=== PATIENT | female | born 2000 | race African-American/Black ===

== ENCOUNTER 2023-08-10 12:01 | Emergency (ER) | payer OTHER ==
[~2023-08-10] VITALS: Ht 160 cm; Wt 68.2 kg
[2023-08-10 12:17] VITALS: TEMP 98.4
[2023-08-10 12:47] LABS: BASOPHILS % (AUTO) 0.4 % (0.0-2.0); EOSINOPHILS % (AUTO) 0.4 % (1.0-6.0); HEMATOCRIT 42.9 % (36-46); HEMOGLOBIN 13.9 g/dL (12.0-16.0); LYMPHOCYTES # (AUTO) 2.8 K/uL (1.0-4.8); MEAN CORPUSCULAR HEMOGLOBIN 25.2 pg (26.0-34.0); MEAN CORPUSCULAR HGB CONC 32.4 G/dL (31.0-37.0); MEAN CORPUSCULAR VOLUME 78 fL (80-100); MONOCYTES # (AUTO) 0.6 K/uL (0.1-1.0); MONOCYTES % (AUTO) 7.1 % (2.0-9.0); NEUTROPHILS # (AUTO) 4.7 K/uL (1.8-7.7); NEUTROPHILS % (AUTO) 58.1 % (40.0-70.0); PLATELET COUNT (AUTO) 208 K/uL (150-450); RED BLOOD CELL COUNT(AUTO) 5.53 MIL/uL (4.00-5.20); RED CELL DISTRIBUTION WIDTH 14.3 % (11.5-14.5); WHITE BLOOD COUNT (AUTO) 8.1 K/uL (4.5-11.0)
[2023-08-10 13:16] LABS: ANION GAP 15 mmol/L (8-16); CALCIUM, TOTAL 9.9 mg/dL (8.8-10.5); CARBON DIOXIDE 23 mmol/L (22-29); CHLORIDE 101 mmol/L (98-107); CREATININE 0.74 mg/dL (0.60-1.30); GLOMERULAR FILTR. RATE CALC > 60 mL/min (>60); GLUCOSE,RANDOM 83 mg/dL (70-110); POTASSIUM 3.2 mmol/L (3.5-5.1); SODIUM SERUM 139 mmol/L (136-145); UREA NITROGEN, BLOOD 9 mg/dL (7-18)
[2023-08-10 13:25] LABS: ALANINE AMINOTRANSFERASE 19 U/L (12-78); ALBUMIN 4.4 g/dL (3.4-5.0); ALKALINE PHOSPHATASE 94 U/L (46-116); ASPARTATE AMINOTRANSFERASE 22 U/L (15-37); BILIRUBIN,TOTAL 0.6 mg/dL (0.1-1.0); TOTAL PROTEIN, SERUM 7.8 g/dL (6.4-8.2)
[2023-08-10 13:45] LABS: ALCOHOL, BLOOD (SERUM) < 3 mg/dL (0-10)
[2023-08-10] MEDS: POTASSIUM CHLORIDE 20 MEQ ER TABLET PO ONE (14:03)
[2023-08-10 14:06] LABS: RBC MORPHOLOGY COMMENT ABNORMAL RBC MORPH
[2023-08-10 14:15] VITALS: BP 125/75; PULSE 88; RESP 18
[2023-08-10 14:21] LABS: ALCOHOL, URINE DRUG SCREEN NEGATIVE (NEGATIVE); AMPHET/METH SCREEN,URINE NEGATIVE (NEGATIVE); BARBITURATE SCREEN, URINE NEGATIVE (NEGATIVE); BENZODIAZEPINES SCREEN,URINE NEGATIVE (NEGATIVE); CANNABINOID SCREEN,URINE NEGATIVE (NEGATIVE); COCAINE SCREEN,URINE NEGATIVE (NEGATIVE); METHADONE SCREEN, URINE NEGATIVE (NEGATIVE); OPIATE SCREEN,URINE NEGATIVE (NEGATIVE); PHENCYCLIDINE SCREEN,URINE NEGATIVE (NEGATIVE)
[2023-08-10] MEDS ORDERED: LORA-999 PO (14:21)
== END 2023-08-10 15:00 | disposition home or self-care (01) ==
LOC: EMS 12:01
DX: F41.9 Anxiety disorder, unspecified (principal); E87.6 Hypokalemia; Z98.890 Other specified postprocedural states
CPT/HCPCS: 99284; 80053; 84703; 85025; 36415; 80307; G0480